=== PATIENT | female | born 1950 | race Caucasian/White ===

== ENCOUNTER 2016-11-26 13:47 | Emergency (ER) | payer OTHER | END 2016-11-26 14:30 | disposition home or self-care (01) | LOC: ER 13:47 | DX: A77.40 Ehrlichiosis, unspecified (principal); F95.9 Tic disorder, unspecified; K21.9 Gastro-esophageal reflux disease without esophagitis; F41.9 Anxiety disorder, unspecified; E78.5 Hyperlipidemia, unspecified; Z88.0 Allergy status to penicillin; Z88.1 Allergy status to other antibiotic agents; Z88.2 Allergy status to sulfonamides | CPT/HCPCS: 99285 ==